=== PATIENT | male | born 1990 | race Two or more races ===

== ENCOUNTER 2017-05-04 20:17 | Emergency (ER) | payer OTHER ==
[~2017-05-04] VITALS: Ht 182.9 cm; Wt 94.0 kg
[2017-05-04] MEDS ORDERED: PERCOCET 5/31 TABLET PO (22:51)
[2017-05-04 23:03] VITALS: BP 128/70
== END 2017-05-04 23:09 ==
LOC: EME → EDBD 20:17 → EME 23:09
PROC: 0QSLXZZ Reposition Right Tarsal, External Approach (ICD-10-PCS; principal; 2017-05-04)
DX: S92.151A Displaced avulsion fracture (chip fracture) of right talus, initial encounter for closed fracture (principal); W01.0XXA Fall on same level from slipping, tripping and stumbling without subsequent striking against object, initial encounter; Y92.148 Other place in prison as the place of occurrence of the external cause; Y93.67 Activity, basketball; Y99.8 Other external cause status; J45.909 Unspecified asthma, uncomplicated
CPT/HCPCS: 73600; 73610; 73700; 99281; 99285